=== PATIENT | female | born 1995 | race Caucasian/White ===

== ENCOUNTER 2024-07-26 09:09 | Outpatient (CLI) | payer BC, SELFPAY ==
--- NOTE | 2024-07-26 09:15 | CRLHL7_ITS ---
For Patients: As a result of the Century Cures Act, medical imaging exams and procedure reports are released immediately into your electronic medical record. You may view this report before your referring provider. If you have questions, please contact your health care provider. OBSTETRICAL ULTRASOUND TRANSABDOMINAL ??? FIRST TRIMESTER, 07/26/2024 CLINICAL INDICATION: Dating and viability. IVF. LMP: 05/18/2024 MIGUE by LMP: 02/22/2025 Gestational age: 9 weeks 6 days Previous ultrasound: No TECHNIQUE: Real-time campo-scale imaging of the fetus was performed transvaginal. FINDINGS: CRL: 3.0 cm, 9 weeks 6 days; MIGUE 02/22/2025 heart rate: 171 BPM Gestational sac: 4.6 cm, appears within normal limits Yolk sac: 4.4 mm, appears within normal limits Right ovary: 4.7 x 2.9 x 3.2 cm Left ovary: 4.9 x 3.4 x 3.3 cm IMPRESSION: 1. Single living intrauterine measuring 9 weeks 6 days and sonographic due date of 02/22/2025. 2. Small inferior subchorionic hemorrhage measures 4 x 1 x 16 mm. JOSH MELGAR M.D. Diagnostic Radiologist [email or web address] Transcribed: 10:[address]/Dictated by: Josh Melgar MD @ 07/26/2024 10:20:00 AM (Electronically Signed)
== END 2024-07-26 09:10 | disposition home or self-care (01) ==
LOC: US 09:10
PROVIDERS: Visit Provider Physician Assistant
DX: O09.811 Supervision of pregnancy resulting from assisted reproductive technology, first trimester (principal); O20.9 Hemorrhage in early pregnancy, unspecified; Z3A.09 9 weeks gestation of pregnancy
CPT/HCPCS: 76801; 83021; 86703; 86706; 86803; 86850; 86900; 86901; 87086; 87340; 87491; 87591

== ENCOUNTER 2024-07-26 10:28 | Outpatient (CLI) | payer BC, SELFPAY ==
[2024-07-26 16:00] LABS: Chlamydia DNA Amplified* NOT DETECTED (No Detected); GC DNA Amplified* NOT DETECTED (No Detected)
== END 2024-07-26 10:29 | disposition home or self-care (01) ==
PROVIDERS: Visit Provider Physician Assistant
DX: O09.811 Supervision of pregnancy resulting from assisted reproductive technology, first trimester (principal); Z3A.09 9 weeks gestation of pregnancy
CPT/HCPCS: 83020; 83021; 85660; 86592; 86703; 86704; 86706; 86762; 86787; 86803; 86850; 86900; 86901; 87086; 87340; 87491; 87591

== ENCOUNTER 2024-10-05 11:43 | Outpatient (CLI) | payer BC, SELFPAY | END 2024-10-05 11:44 | disposition home or self-care (01) | LOC: US 11:44 | PROVIDERS: Visit Provider Obstetrics & Gynecology | DX: O09.812 Supervision of pregnancy resulting from assisted reproductive technology, second trimester (principal); Z3A.19 19 weeks gestation of pregnancy | CPT/HCPCS: 76811 ==

== ENCOUNTER 2024-11-09 10:38 | Outpatient (CLI) | payer BC, SELFPAY | END 2024-11-09 10:39 | disposition home or self-care (01) | LOC: US 10:39 | PROVIDERS: Visit Provider Obstetrics & Gynecology | DX: O09.812 Supervision of pregnancy resulting from assisted reproductive technology, second trimester (principal); Z3A.24 24 weeks gestation of pregnancy | CPT/HCPCS: 76816 ==

== ENCOUNTER 2024-12-06 10:20 | Outpatient (CLI) | payer BC, SELFPAY | END 2024-12-06 10:21 | disposition home or self-care (01) | LOC: NFLDREF 12-08 17:27 | PROVIDERS: Visit Provider Obstetrics & Gynecology | DX: Z34.93 Encounter for supervision of normal pregnancy, unspecified, third trimester (principal) | CPT/HCPCS: 86592 ==

== ENCOUNTER 2025-01-04 09:02 | Outpatient (CLI) | payer BC, SELFPAY | END 2025-01-04 09:03 | disposition home or self-care (01) | LOC: US 09:03 | PROVIDERS: Visit Provider Obstetrics & Gynecology | DX: O09.813 Supervision of pregnancy resulting from assisted reproductive technology, third trimester (principal); Z3A.33 33 weeks gestation of pregnancy | CPT/HCPCS: 76816 ==

== ENCOUNTER 2025-01-31 08:59 | Outpatient (CLI) | payer BC, SELFPAY ==
--- NOTE | 2025-01-31 09:15 | CRLHL7_ITS ---
For Patients: As a result of the Cures Act, medical imaging exams and procedure reports are released immediately into your electronic medical record. You may view this report before your referring provider. If you have questions, please contact your health care provider. OBSTETRICAL ULTRASOUND ??? BIOPHYSICAL PROFILE INDICATION: IVF. Biophysical profile. CLINICAL HISTORY: MIGUE by IVF: 02/23/2025 Gestational Age: 36 weeks 5 days COMPARISON: 01/04/2025, 11/09/2024, 10/05/2024. TECHNIQUE: Real-time campo-scale transabdominal imaging of the fetus was performed. FINDINGS: Fetus: Single Cervix: Not visualized positioning: Vertex Amniotic Fluid: 3.8 cm SDP BIOPHYSICAL PROFILE: Gross body movements: 2 tone: 2 Respiratory activity: 2 Amniotic fluid SDP: 2 Total score: 8 Placenta technique: Transabdominal Placenta position: Posterior heart rate: 142 bpm IMPRESSION: Normal biophysical profile score of 8/8. JOSH MELGAR M.D. Diagnostic Radiologist [email or web address] Transcribed: 11:[address]/Dictated by: Josh Melgar MD @ 01/31/2025 10:38:00 AM (Electronically Signed)
== END 2025-01-31 09:00 | disposition home or self-care (01) ==
LOC: US 08:59
PROVIDERS: Visit Provider Obstetrics & Gynecology
DX: O09.813 Supervision of pregnancy resulting from assisted reproductive technology, third trimester (principal); Z3A.36 36 weeks gestation of pregnancy
CPT/HCPCS: 76819

== ENCOUNTER 2025-01-31 10:20 | Outpatient (CLI) | payer BC, SELFPAY | END 2025-01-31 10:21 | disposition home or self-care (01) | LOC: NFLDREF 02-04 23:06 | PROVIDERS: Visit Provider Obstetrics & Gynecology | DX: O09.813 Supervision of pregnancy resulting from assisted reproductive technology, third trimester (principal); Z3A.36 36 weeks gestation of pregnancy | CPT/HCPCS: 87081; 87653 ==

== ENCOUNTER 2025-02-07 09:03 | Outpatient (CLI) | payer BC, SELFPAY ==
--- NOTE | 2025-02-07 09:15 | CRLHL7_ITS ---
For Patients: As a result of the Cures Act, medical imaging exams and procedure reports are released immediately into your electronic medical record. You may view this report before your referring provider. If you have questions, please contact your health care provider. OB ULTRASOUND BIOPHYSICAL PROFILE CLINICAL HISTORY: IVF. TECHNIQUE: Ultrasound OB pelvis transabdominal. Real-time campo-scale imaging of the pelvis was performed.? COMPARISON: 01/31/2025, 01/04/2025, 11/09/2024. FINDINGS: MIGUE by IVF: 02/23/2025. GA: 37 weeks 5 days. Gestation: Single. Cervix: Not visualized. Positioning: Vertex. Amniotic Fluid: 4.2 cm SDP. BIOPHYSICAL PROFILE Gross Body Movements: 2 Tone: 2 Respiratory Activity: 2 Amniotic Fluid SDP: 2 Total Score: 8 Placenta: Technique: TA. Placenta Position: Posterior. Dopplers: Heart Rate: 136 bpm. IMPRESSION: Normal biophysical profile score of 8/8. Josh Tamayo M.D. Diagnostic Radiologist [email or web address] Transcribed: 11:07 am DW/Dictated by: Josh Tamayo MD @ 02/07/2025 10:33:00 AM (Electronically Signed)
== END 2025-02-07 09:04 | disposition home or self-care (01) ==
LOC: US 09:04
PROVIDERS: Visit Provider Obstetrics & Gynecology
DX: O09.813 Supervision of pregnancy resulting from assisted reproductive technology, third trimester (principal); Z3A.37 37 weeks gestation of pregnancy
CPT/HCPCS: 76819

== ENCOUNTER 2025-02-08 12:57 | Outpatient (CLI) | payer BC, SELFPAY ==
[2025-02-08 13:10] VITALS: PULSE 89; O2SAT 100
[2025-02-08 13:15] VITALS: PULSE 90; O2SAT 100
[2025-02-08 13:22] VITALS: BP 117/59; PULSE 82
[2025-02-08 13:40] VITALS: RESP 18; TEMP 36.7
[2025-02-08 13:47] LABS: Amnisure Rom* Negative
--- NOTE | 2025-02-08 14:13 | CRLHL7_ITS ---
For Patients: As a result of the Century Cures Act, medical imaging exams and procedure reports are released immediately into your electronic medical record. You may view this report before your referring provider. If you have questions, please contact your health care provider. INDICATION: CONCERN FOR PROM, CHECK LOUIE. TECHNIQUE: Ultrasound OB pelvis transabdominal. Real-time campo-scale imaging of the fetus was performed without stress testing. COMPARISON: OB ultrasound 02/07/2025. FINDINGS: Sonographic imaging demonstrates a single living intrauterine gestation. Fetus demonstrates a regular cardiac rate of 157 beats per minute. Fetus has a cephalic orientation. Amniotic fluid volume is normal with single deepest pocket of 5.4 cm and LOUIE of 11.6 cm. IMPRESSION: Single viable intrauterine with normal amniotic fluid volume. Dictated by David Rodriguez MD @ 02/08/2025 2:58:33 PM (Electronically Signed)
--- NOTE | 2025-02-08 14:59 | PC.OBNST ---
NST Note NST Note Start: 02/08/25 13:03 Freq: ONCE Status: Active Protocol: Document 02/08/25 14:55 SRV (Rec: 02/08/25 14:59 SRV No Response) NST Note 1 Para (# of births) 0 EDC 02/23/25 Gestational Age In 37 Weeks & 6 Days Weeks & Days Patient Presented Leaking fluid,Other with Complaint(s) of Other Complaints Questionable watery brown/red discharge since yesterday with some abdominal pressure at times Reactive Yes Appropriate for Yes Gestational Age FAUSTINO Erickson RN Date 02/08/25 Reactive Yes Appropriate for Yes Gestational Age FAUSTINO Anderson Date 02/08/25 OB NST charge Yes Complete NST Note Yes via Write Note The provider's electronic signature indicates the NST is reactive/appropriate for gestational age. *Note to provider: If an addendum is required, open the patient's chart and click on the note under the Nurse/Allied Health tab.
== END 2025-02-08 14:55 | disposition home or self-care (01) ==
LOC: OB OUT 12:57 → OB 12:57
PROVIDERS: Visit Provider Obstetrics & Gynecology
DX: O47.1 False labor at or after 37 completed weeks of gestation (principal); Z3A.37 37 weeks gestation of pregnancy
CPT/HCPCS: 59025; 76815; 84112; G0463

== ENCOUNTER 2025-02-14 08:59 | Outpatient (CLI) | payer BC, SELFPAY ==
--- NOTE | 2025-02-14 09:15 | CRLHL7_ITS ---
For Patients: As a result of the Cures Act, medical imaging exams and procedure reports are released immediately into your electronic medical record. You may view this report before your referring provider. If you have questions, please contact your health care provider. OB ULTRASOUND MIGUE by LMP: 02/23/2025. GA: 38 w, 5 d. Single. Comparison: 02/08/2025, 02/07/2025, 01/31/2025, 01/04/2025, 11/09/2024, 10/05/2024. INDICATION: IVF. TECHNIQUE: Real time grayscale imaging of the fetus was performed. Transabdominal. CERVIX: Not visualized. POSITIONING: Vertex. AMNIOTIC FLUID: 2.9 cm. SDP (N: greater than 2 x 1 cm) BIOPHYSICAL PROFILE: 2: Gross body movements 2: tone 2: Respiratory activity 2: Amniotic fluid SDP (N: greater than 2 x 1 cm) 8/8: Total score PLACENTA: Technique: Transabdominal. PLACENTA POSITION: Posterior. DOPPLER: heart rate: 152 bpm. IMPRESSION: Normal biophysical profile score 8/8. Amniotic fluid single deepest pocket 2.9 cm. Josh Tamayo M.D. Diagnostic Radiologist [email or web address] laws/Dictated by: Josh Tamayo MD @ 02/14/2025 9:43:00 AM (Electronically Signed)
== END 2025-02-14 09:00 | disposition home or self-care (01) ==
LOC: US 09:00
PROVIDERS: Visit Provider Obstetrics & Gynecology
DX: O09.813 Supervision of pregnancy resulting from assisted reproductive technology, third trimester (principal); Z3A.38 38 weeks gestation of pregnancy
CPT/HCPCS: 76819

== ENCOUNTER 2025-02-20 20:16 | Outpatient (CLI) | payer BC, SELFPAY ==
[2025-02-20 20:34] VITALS: BP 116/68; PULSE 82; PULSE 90; O2SAT 100
[2025-02-20 22:10] VITALS: TEMP 36.8
--- NOTE | 2025-02-21 01:15 | PC.OBNST ---
NST Note NST Note Start: 02/20/25 20:19 Freq: ONCE Status: Discharge Protocol: Document 02/20/25 21:41 CJM (Rec: 02/20/25 22:15 CJM No Response) NST Note 1 Para (# of births) 0 EDC 02/23/25 Gestational Age In 39 Weeks & 4 Days Weeks & Days Patient Presented Contractions/cramping with Complaint(s) of Reactive Yes Appropriate for Yes Gestational Age RN Hank Hernandez RN Date 02/20/25 Reactive Yes Appropriate for Yes Gestational Age RN Romina Zuñiga RN Date 02/20/25 OB NST charge Yes Complete NST Note Yes via Write Note The provider's electronic signature indicates the NST is reactive/appropriate for gestational age. *Note to provider: If an addendum is required, open the patient's chart and click on the note under the Nurse/Allied Health tab.
== END 2025-02-20 21:56 | disposition home or self-care (01) ==
LOC: OB OUT 20:16 → OB 20:17
PROVIDERS: Visit Provider Obstetrics & Gynecology
DX: O47.1 False labor at or after 37 completed weeks of gestation (principal); Z3A.39 39 weeks gestation of pregnancy
CPT/HCPCS: 59025; G0463

== ENCOUNTER 2025-02-21 08:59 | Outpatient (CLI) | payer BC, SELFPAY ==
--- NOTE | 2025-02-21 09:15 | CRLHL7_ITS ---
For Patients: As a result of the Century Cures Act, medical imaging exams and procedure reports are released immediately into your electronic medical record. You may view this report before your referring provider. If you have questions, please contact your health care provider. OB ULTRASOUND MIGUE by IVF: 02/23/2025. GA: 39 w, 5 d. Single. Comparison: 02/14/2025, 02/08/2025, 02/07/2025. INDICATION: IVF. TECHNIQUE: Real time grayscale imaging of the fetus was performed. Transabdominal. CERVIX: Not visualized. POSITIONING: Vertex. AMNIOTIC FLUID: 4.4 cm. SDP (N: greater than 2 x 1 cm) BIOPHYSICAL PROFILE: 2: Gross body movements 2: tone 2: Respiratory activity 2: Amniotic fluid SDP (N: greater than 2 x 1 cm) 8/8: Total score PLACENTA: Technique: Transabdominal. PLACENTA POSITION: Posterior. DOPPLER: heart rate: 136 bpm. IMPRESSION: Normal biophysical profile score 8/8. Josh Tamayo M.D. Diagnostic Radiologist [email or web address] [email or web address]/[email or web address] laws/Dictated by: Josh Tamayo MD @ 02/21/2025 2:39:00 PM (Electronically Signed)
== END 2025-02-21 09:00 | disposition home or self-care (01) ==
LOC: US 08:59
PROVIDERS: Visit Provider Obstetrics & Gynecology
DX: O09.813 Supervision of pregnancy resulting from assisted reproductive technology, third trimester (principal); Z3A.39 39 weeks gestation of pregnancy
CPT/HCPCS: 76819

== ENCOUNTER 2025-02-24 15:48 | Inpatient (IN) | payer BC, SELFPAY ==
[2025-02-24 16:03] VITALS: BP 122/73; PULSE 83
[2025-02-24 16:07] VITALS: BMI 28.3
--- NOTE | 2025-02-24 17:41 | P.LDBA_ITS ---
Subjective History of Present Illness Date Seen: 02/24/25 Narrative: Patient is being admitted to Labor and Delivery for scheduled IOL. She is a 29 year old at 40.1 weeks gestation. Her full history and physical was dictated by Dr. Razo on 02/07/25. Please see this for details. Active movement. Denies LOF, vaginal bleeding or abnormal vaginal discharge. Irregular contractions with a lot of pelvic pressure. Specific Issues/Plans G1P[] Partner: Eloy Frankie B nonimmune - Undecided on if she wants booster. Definitely only if she decides on receiving booster H&P: Dung 02/07/25 # IVF Completed preimplantation genetics Level 2 ultrasound and MFM consult: referral placed. Scheduled for 10/27 echo: 10/27/24 normal ASA 81mg starting on 08/22 Growth ultrasound at 32 weeks: 11/ w/MFM at [facility] testing starting at 36 weeks: testing form completed # mild bilateral pyelectasis with right ureterectasis on 10/05 recommend a repeat US with [facility] in 4-6 weeks to re-evaluate growth and urinary tract # Deaf electroplater automatic. Partner is also deaf Family appreciates bedside US for FHR checks if possible # anxiety, currently doing well without treatment Imagin10/05/24: Amaral intrauterine at 19w 6d gestational age. Mild b ilateral pyelectasis is noted with mild right proximal ureterectasis. Otherwise, none of the anomalies commonly detected by ultrasound were evident in the detailed anatomic survey described above. Growth parameters and estimated weight were consistent with appropriate for gestational age pattern of growth. The amniotic fluid volume appeared normal. 10/27/2024: echocardiogram: Normal cardiac anatomy. Normal right and left ventricular size and function. No effusion. Vaccinations: COVID: prefers to wait until after delivery for flu/covid Flu: wants after delivery Tdap: 12/15/24 received RSV: 12/29/2024 received 32 week mental health: 12/29/2024 Last pap: [Only high-risk abnormal pap results in problem list] OB - Problem Based A/P Additional Plan (1) Anxiety: Problem details: and POTS by patient report Status: Acute (2) Deaf: Status: Acute (3) Infertility: Status: Acute (4) resulting from in-vitro fertilization: Status: Acute Plan - Patient had a late deceleration to 90s for 1 minute when she was first placed on the monitor. Resolved with repositioning. Decision made for cook cath instead of misoprostol. This was explained to patient and her . - Cook cath place at 1815: 50cc/50cc. Uncomplicated - Pain control: Undecided on epidural - GBS negative - Low dose pitocin to start after 6 hours. NST after cook cath - 130 bpm, moderate variability, multiple accelerations, negative decelerations. Cat I - [place]: Q2-3 minutes OB Exam Physical Exam Vital signs: Pulse BP 83 122/73 02/24/25 16:03 02/24/25 16:03 Narrative: Physical exam: General: No acute distress Psych: Alert and oriented x3, full affect HEENT: Normocephalic, atraumatic Lungs: Unlabored breathing Neuro: No focal deficit. Mentating appropriately Pelvic exam: 1/50/-2, moderately soft, mid Navas score of 5
[2025-02-24 18:31] VITALS: BP 110/71; PULSE 84; TEMP 36.7
[2025-02-24 20:14] LABS: Hematocrit* 39.9 % (33.0-51.0); Hemoglobin* 12.9 gm/dL (12.0-16.0); Immature Granulocytes Abs Auto 0.07 K/uL (0.00-0.30); Immature Granulocytes Pct Auto 0.7 %; Lymphocytes Absolute Auto 1.40 K/uL (0.90-2.90); Mean Corpuscular HGB Conc 32 gm/dL (32-36); Mean Corpuscular Hemoglobin 31 pg (26-34); Mean Corpuscular Volume 96 fL (80-100); RDW Coefficient of Variation % 12.5 % (11.5-15.5); Red Blood Count* 4.17 m/uL (4.00-5.20); White Blood Count* 9.61 K/uL (4.50-11.00)
[2025-02-24 20:20] LABS: Slide Review Reflex No
[2025-02-24 21:25] VITALS: BP 105/56; PULSE 65; TEMP 36.8
[2025-02-25] VITALS (164 sets, daily range): BP systolic 92–229; BP diastolic 50–91; PULSE 67–106; RESP 16–18; TEMP 36.7–37.6; O2SAT 81–100
[2025-02-25] MEDS: LACTATED RINGERS 1000 ML 1,000 ML 125 ML IV ×3 (00:33→18:11)
[2025-02-25] MEDS: OXYTOCIN 30 unit/500 ML in NS 30 UNIT/500 ML BAG IVPB (00:34)
[2025-02-25] MEDS: LIDOCAINE 2% (PF) 5 ML VIAL EPIDURAL (07:47)
[2025-02-25] MEDS: ROPIVACAINE 0.2% 100 ml 100 ML 12 MG EPIDURAL (07:53)
--- NOTE | 2025-02-25 08:33 | PM.OBPNL ---
Subjective Time Seen by Provider: 08:33 Date Seen: 02/25/25 Objective Exam: FHTs CAT 1 Vital Signs: Last Vital Signs Temp 98.5 F 02/25/25 08:32 Pulse 76 02/25/25 08:15 BP 105/64 02/25/25 08:15 Pulse Ox 98 02/25/25 08:21 Pelvic Exam Dilation (cm): 8 Effacement (%): 90 Station: -1 Contractions Monitor mode: External Contraction Frequency: 2-3 Contraction pattern: Regular Contraction intensity: Strong/Firm Pitocin Rate (mU/min): 6 Assessment Assessment: active labor Amniotic Membrane Status: SROM Status: Category l Heart Rate Baseline: 120 Penitentiary Variability: Moderate (6-25) Monitor Accelerations: Present Monitor Decelerations: None
--- NOTE | 2025-02-25 13:11 | PM.ANBPRC ---
[facility] Surgical History History of knee surgery ?Z98.890 - Other specified postprocedural states (ICD-10) Social History Narrative: Occupation: []. Marital status: . Scientology/cultural needs: no. Chemical or radiation exposure: no. Pre- tobacco use: no. Pre- alcohol use: no. Current tobacco use: no. Current alcohol use: no. Recreational drug use: no. Dietary restrictions: no. Blood transfusion acceptable in an emergency: yes. PSYCHOSOCIAL HISTORY: History of depression or currently depressed: no. Current or past physical, emotional, or sexual mistreatment: no. Problems that will make it hard to make it to appointments: no. What is your current living situation?: I presently have a place to live Problems where you live: no known problems In the past 12 months, utilities in danger of being shut off: no In past 12 months, lack of transportation kept you from medical appts, meetings, work, or getting things needed for daily living: no In the past 12 mos, have been you worried that your food would run out before you had money to buy more?: never true In the past 12 mos, the food you bought just didn't last and you didn't have money to buy more?: never true Smoking Status: Never smoker How often does anyone, including family, friends and others, physically hurt you: never How often does anyone, including family, friends and others, insult or talk down to you: never How often does anyone, including family, friends and others, threaten you with harm: never How often does anyone, including family, friends and others, scream or curse at you: never Meds Home Medications and Allergies Home Medications ?Medication ?Instructions ?Recorded ?Confirmed ?Type NYW-mrza-BV-omega 3 fatty no.1 27 1 cap PO DAILY 07/26/24 02/24/25 History mg-1 mg-300 mg capsule magnesium 250 mg tablet 250 mg PO QDAY 07/26/24 02/24/25 History mecobalamin (vitamin B12) 2,500 2,500 mcg PO DAILY 07/26/24 02/24/25 History mcg chewable tablet aspirin 81 mg tablet,delayed 81 mg PO QDAY 09/22/24 02/24/25 History release (Adult Low Dose Aspirin) Allergies Allergy/AdvReac Type Severity Reaction Status Date / Time No Known Drug Allergies Allergy Verified 02/24/25 16:29 Results Labs Labs: Laboratory Results - last 24 hr 02/24/25 19:40 WBC 9.61 RBC 4.17 Hgb 12.9 Hct 39.9 MCV 96 MCH 31 MCHC 32 RDW Coeff of [place] 12.5 Plt Count 282 Neut % (Auto) 76.4 H Lymph % (Auto) 14.6 L [place] % (Auto) 6.9 Eos % (Auto) 1.2 Baso % (Auto) 0.2 Neut # (Auto) 7.30 H Lymph # (Auto) 1.40 [place] # (Auto) 0.70 Eos # (Auto) 0.12 Baso # (Auto) 0.02 Abs Immat Gran (auto) 0.07 Imm/Tot Granulo (auto) 0.7 Syphilis IgG Antibody Non-Reactive Blood Type B Positive Antibody Screen NEGATIVE Vital Signs Vital Signs: Last Vital Signs Temp 98.8 F 02/25/25 11:28 Pulse 73 02/25/25 13:00 BP 102/50 L 02/25/25 13:00 Pulse Ox 97 02/25/25 11:47 Weight: 81.9 kg Height: 170.18 cm Anesthesia Procedures Epidural Insertion Patient Location: OB Start Time: 07:00 Stop Time: 08:00 Start Date: 02/25/25 Stop Date: 02/25/25 Reason for Block: procedure for pain Patient Position: sitting Performed By: Asia Hedrick Preanesthetic Checklist: IV checked, risks and benefits discussed, monitors and equipment checked, pre-op evaluation, timeout performed and anesthesia consent Prep: chlorhexidine gluconate Monitoring: blood pressure monitoring, continuous pulse oximetry and heart rate Approach: midline Vertebral Space: lumbar (1-5) Epidural Technique: DAVID saline Needle Type: Tuohy needle Injection Technique: continuous catheter (continuous catheter) Needle gauge: 17 Needle Length (cm): 10 cm Needle Insertion Depth (cm): 8 Catheter Gauge: 19 Catheter Type: multi-orifice Catheter at skin depth (cm): 15 Test Dose Result: negative and lidocaine 1.5% with epinephrine 1 to 200,000
[2025-02-25] MEDS: ONDANSETRON 2 MG/ML inj 4 MG IV (13:58)
--- NOTE | 2025-02-25 14:59 | PM.OBPNL ---
Subjective Time Seen by Provider: 15:25 Date Seen: 02/25/25 Narrative: pushing for 4 hours, exhausted, no further progress with pushing. +2 station. 1+ CAPUT. Discussed options including attempted vacuum. Risks and benefits of CS including alternative discussed, all questions answered. Wants . Consents signed. Objective Exam: Complete, +2. 1+ caput Vital Signs: Last Vital Signs Temp 99.3 F 02/25/25 14:45 Pulse 75 02/25/25 14:04 Resp 18 02/25/25 14:45 BP 104/54 L 02/25/25 14:04 Pulse Ox 97 02/25/25 11:47 Contractions Monitor mode: External Contraction pattern: Regular Contraction intensity: Strong/Firm Pitocin Rate (mU/min): 6 Assessment Amniotic Membrane Status: SROM Status: Category l Heart Rate Baseline: 120 Monitor Accelerations: Present Monitor Decelerations: None Plan Plan: Section.
[2025-02-25] MEDS: AZITHROMYCIN 500 MG in 0.9 % SODIUM CHLORIDE 250 ml 250 ML 255 MG IVPB (15:10)
--- NOTE | 2025-02-25 17:01 | P.OBPRC_ITS ---
OB Delivery Proc Additional Procedures Tubal Ligation at the time of : No Other: No Procedure Date of procedure: 02/25/25 Pre-op diagnosis: Cephalopelvic disproportion, maternal exhaustion Post-op diagnosis: same (Female, 8/9 apgars) Procedure Done: Global Will [facility] bill your pro fee for this procedure?: Yes Blood Loss Measurement Type: QBL (649) Bakri Used: No IV fluids (mL): 900 Urine Output (mL): 425 Surgeon: Glen Anesthesia Type: Epidural Procedure Name: Primary Section Procedure Description: Prior to procedure Risks and benefits explained. Time out completed. Anesthesia documented. Low transverse incision made, carried through sub q. Fascia incised and seperated form rectus muscles. Peritoneum entered sharply and stretched. Retractor placed. Bladder advanced lower. Uterine incision made transversely, spread cephalad and caudad. Head was elevated out of the pelvis and delivered easily. Placenta delivered manually and intact. Uterus closed with 2 layers of 0 vicryl. Irrigated and bleeding on left edge controlled with figur of 8 of 2-0 vicryl. retractor removed. Peritoneum closed with vicryl. Fascia with delayed absorbable barbed suture stratofix. Sub Q irrigated and skin closed with monocryl and steristrips. Dressing placed. Complications: none Pathology: none sent Surgery Debrief Performed: Yes Condition: stable Disposition: PACU
--- NOTE | 2025-02-25 17:17 | P.ANES_ITS ---
Anesthesia Charges Start Date/Time Anesthesia Start Date: 02/25/25 Anesthesia Start Time: 15:40 Stop Date/Time Anesthesia Stop Date: 02/25/25 Anesthesia Stop Time: 17:09 Coding CPT Codes CPT Codes: ANES/ANALG CS DELIVER ADD-ON - 07229 ([id number]) P2 - PATIENT W/MILD SYST DISEASE, QZ - SUPPLIER QUALITY SVC W/O INSTRUMENT LENS GRINDER APPRENTICE BY
--- NOTE | 2025-02-25 17:17 | W.ANESCHARGE ---
Anesthesia Charges Start Date/Time Anesthesia Start Date: 02/25/25 Anesthesia Start Time: 15:40 Stop Date/Time Anesthesia Stop Date: 02/25/25 Anesthesia Stop Time: 17:09 Coding CPT Codes CPT Codes: ANES/ANALG CS DELIVER ADD-ON - 73149 ([id number]) P2 - PATIENT W/MILD SYST DISEASE, QZ - DRAWBRIDGE TENDER SVC W/O SECURITIES SUPERVISOR BY
--- NOTE | 2025-02-25 17:18 | P.NB_ITS ---
Nerve Block Nerve Block Time Seen by Provider: 16:50 Type of block requested by surgeon for post-operative analgesia: TAP Side: bilateral Time out performed: Yes Verification of patient name: Yes Verification of date of : Yes Name of person performing procedure: Costa Floridalma Continuous monitoring Was continuous monitoring of O2 sat, B/P, radiographer cardiac catheterization, recorded every 15 minutes?: Yes Procedure Checklist: sterile prep, needles and gloves Ultrasound guided. Images saved: Yes Medications given in 5ml increments after negative aspiration: Marcaine %: 0.25 mL: 30 Needle gauge: 20 and Exparel mL: 10 Needle gauge: 20 Patient tolerated procedure well: Yes Block Charges Block Charge (with Pro Fee): TAP Bilateral Use of Ultrasound Machine for Block: Yes- US Guidance/pain block
--- NOTE | 2025-02-25 17:25 | PM.OBPRCCS ---
OB Delivery Proc Additional Procedures Tubal Ligation at the time of : No Other: No Procedure Date of procedure: 02/25/25 Pre-op diagnosis: Cephalopelvic disproportion, maternal exhaustion Post-op diagnosis: same (Female, 8/9 apgars) Procedure Done: Global Will [facility] bill your pro fee for this procedure?: Yes Blood Loss Measurement Type: QBL (649) Bakri Used: No IV fluids (mL): 900 Urine Output (mL): 425 Surgeon: Glen Anesthesia Type: Epidural Procedure Name: Primary Section Procedure Description: Prior to procedure Risks and benefits explained. Time out completed. Anesthesia documented. Low transverse incision made, carried through sub q. Fascia incised and seperated form rectus muscles. Peritoneum entered sharply and stretched. Retractor placed. Bladder advanced lower. Uterine incision made transversely, spread cephalad and caudad. Head was elevated out of the pelvis and delivered easily. Placenta delivered manually and intact. Uterus closed with 2 layers of 0 vicryl. Irrigated and bleeding on left edge controlled with figur of 8 of 2-0 vicryl. retractor removed. Peritoneum closed with vicryl. Fascia with delayed absorbable barbed suture stratofix. Sub Q irrigated and skin closed with monocryl and steristrips. Dressing placed. Complications: none Pathology: none sent Surgery Debrief Performed: Yes Condition: stable Disposition: PACU
[2025-02-25] MEDS: ACETAMINOPHEN 500 MG TABLET 1000 MG PO (19:43)
[2025-02-26 02:37] VITALS: BP 101/65; PULSE 78; RESP 18; TEMP 36.8; O2SAT 98
[2025-02-26] MEDS: ACETAMINOPHEN 500 MG TABLET 1000 MG PO ×4 (02:37→22:10)
[2025-02-26 06:34] VITALS: BP 101/64; PULSE 76; RESP 18; TEMP 36.7; O2SAT 98
[2025-02-26] MEDS: DOCUSATE SODIUM 100 MG CAPSULE PO (08:40)
[2025-02-26 08:48] LABS: Hemoglobin* 9.7 gm/dL (12.0-16.0)
[2025-02-26 09:02] VITALS: BP 100/67; PULSE 80; RESP 16; TEMP 36.6; O2SAT 97
[2025-02-26 13:07] VITALS: BP 100/65; PULSE 80; RESP 16; TEMP 36.7; O2SAT 98
--- NOTE | 2025-02-26 13:14 | PM.OBPNVD1 ---
OB - PN:Subj Subjective Time Seen by Provider: 13:22 Date Seen: 02/26/25 Patient comments OB post-: pain well controlled and tolerating diet [place] status: OB - PN: Obj Exam Physical Exam: Vital signs: Temp Pulse Resp BP Pulse Ox O2 Del Method 97.9 F 80 16 100/67 97 Room Air 02/26/25 09:02 02/26/25 09:02 02/26/25 09:02 02/26/25 09:02 02/26/25 09:02 02/26/25 09:02 Detailed Abdominal Exam: Comments: Soft, normal uterine tenderness, fundus firm, dressing dry. Routine Extremities Exam: Comments: nOn-tender with minimal edema. OB - PN: Obj Data Labs Labs: Laboratory Results - last 24 hr 02/26/25 08:40 Hgb 9.7 L OB - PN: A/P Delivery Assessment and Plan (1) Anxiety: Problem details: and POTS by patient report Status: Acute (2) Deaf: Status: Acute (3) Infertility: Status: Acute (4) resulting from in-vitro fertilization: Status: Acute Plan day: 1 Plan: routine care
[2025-02-26 16:13] VITALS: BP 105/68; PULSE 81; RESP 16; TEMP 36.8; O2SAT 99
[2025-02-27 00:05] VITALS: BP 104/68; PULSE 77; RESP 16; TEMP 36.7; O2SAT 98
[2025-02-27] MEDS: ACETAMINOPHEN 500 MG TABLET 1000 MG PO ×2 (04:45→11:00)
[2025-02-27] MEDS: IBUPROFEN 600 MG TABLET PO ×2 (07:28→15:24)
[2025-02-27] MEDS: DOCUSATE SODIUM 100 MG CAPSULE PO (07:29)
[2025-02-27 07:32] VITALS: BP 109/70; PULSE 85; RESP 20; TEMP 36.8; O2SAT 98
--- NOTE | 2025-02-27 08:35 | PM.OBDSVD1 ---
DS: Providers Provider Time Seen by Provider: 09:20 Date Seen: 02/27/25 Date of admission: 02/24/25 15:48 Primary care physician: Not a Local Provider Admitting Clinician: Aditi Freeman MD Attending Physician on discharge: Ellie Jett CNM Date of Discharge: 02/27/25 DS: Diagnosis Discharge Diagnosis (1) care following delivery: Status: Acute (2) Lactating mother: Status: Acute Exam Narrative: Exam Narrative: Constitutional: no apparent distress Respiratory: no labored breathing, lungs clear to auscultation Cardiovascular: regular heart rate and rhythm Extremities: full sensation, no swelling Abdomen: soft, tender, low transverse incision covered with clean, dry, intact silvadene surgical dressing. Uterus is firm. Mood: stable, appropriate Const: Vital Signs, click to edit/add: Vital Signs - 24 hr 02/26/25 09:02 02/26/25 13:07 02/26/25 16:13 Temperature 97.9 F 98.1 F 98.3 F Pulse Rate [Pulse Oximeter] 80 80 81 Respiratory Rate 16 16 16 Blood Pressure [Le ft Arm] 100/67 100/65 105/68 Pulse Oximetry 97 98 99 Oxygen Delivery Me thod Room Air Room Air Room Air 02/27/25 00:05 02/27/25 07:32 Temperature 98.1 F 98.3 F Pulse Rate [Pulse Oximeter] 77 85 Respiratory Rate 16 20 Blood Pressure [Le ft Arm] 104/68 109/70 Pulse Oximetry 98 98 Oxygen Delivery Me thod Room Air Room Air OB - DS: Summary Hospital Course Hospital Course: Chelsie is a 29?y.o. G 1 P 1 who was admitted to [facility] for elective induction of labor. Labor was complicated by failure to progress in the second stage, pushing for over 4 hours and maternal exhaustion.??She had a section that was uncomplicated. The patient feels well.??The pain is controlled with current medications, tylenol and ibuprofen.?She is breast?feeding?and reports things are improving greatly. She is using the nipple shield and feeding independently every 2 to 3 hours. They are also supplementing with formula as needed. the patient has done well.??Vitals have been stable.??She has?remained?afebrile.??Has a good appetite,?is?tolerating a general diet.??She is voiding without difficulty.??She is passing gas and has not had a bowel movement.??She is ambulating and denies any dizziness.??Has?small?amount of rubra lochia. Aunlavell and her partner used IVF for to conceive and had trouble with control in the past. She is not interested in hormonal control for prevention. electrician wiring present and interpreted visit. Planning condoms. ?? Problems: incision? ?? plan:? Discharge?home with baby.? Follow up in 1-2 weeks for incision and mood check (surgical dressing to be removed) and?6 weeks comprehensive visit. Nurse will assist in making follow up appointments prior to discharge. Prescription for tylenol, Ibuprofen, and Oxycodone tabs sent. Ice and heat pack encouraged. Abdominal binder given and instructed how to use. Recommend stool softener until having regular bowel movements. , may see if needed? Labs WNL or stable with trending? Reviewed signs of pre-eclampsia. Call for signs/symptoms of preeclampsia Trae Michel APRN, CNM, was present for visit and have reviewed and?agree?with documentation by the Certified Nurse Midwifery?Student.? Peripartum Data Infant delivery method: Primary C/S; Labored Laceration description: None Procedures: Procedures Operation Date: 02/25/25 15:30 Actual Procedure Side Surgeon p Section Froy Carroll M.D. complications: none Gender: Female Infant Discharge Plan: Home Status at Discharge Functional status at discharge: independent ambulation Overall status at discharge: patient is progressing back to baseline Time Spent with Patient Time attestation: Total time spent providing and/or coordinating discharge services: Time spent: Greater than 30 minutes Discharge Plan Discharge Disposition: Home, Self-Care Date of Admission: 02/24/25 15:48 Attending Provider on Discharge: Ellie Jett Primary Care Provider: Provider,Not a Local Condition: Stable Anticipated Discharge Date/Time: 02/27/25 10:16 Discharge Medications: New docusate sodium 100 mg Capsule 100 mg PO BID PRNQty: 60 2RF acetaminophen 500 mg Tablet 1,000 mg PO Q6H PRNQty: 60 2RF ibuprofen 600 mg Tablet 600 mg PO Q6H PRNQty: 60 0RF oxycodone 5 mg Tablet 5 - 10 mg PO Q4H PRN (Reason: Pain) Qty: 10 0RF Continued magnesium 250 mg tablet 250 mg PO QDAY [id number] 3 fatty no.1 27-1-300 mg capsule 1 cap PO DAILY mecobalamin (vitamin B12) 2,500 mcg tablet,chewable 2,500 mcg PO DAILY Discontinued aspirin [Adult Low Dose Aspirin] 81 mg tablet,delayed release (DR/EC) 81 mg PO QDAY Discharge Orders: Discharge Order (Routine); Ordered 02/27/25 Ordered By: Ellie Covington [facility] Patient Education: Bupivacaine Liposome (By injection), OB Over the Counter Medication Information, OB /Bottle Feeding, OB /Breast Feeding Additional Instructions: Discharge instructions were reviewed with the patient including signs and symptoms of infection and home going medications Lifting Restrictions: 20 pounds for 6 weeks No not submerge incision under water X 2 weeks? Nothing vaginally for 6 weeks: no tampons or intercourse Do not drive while taking narcotic pain medication(s) Off Work or School for 8 weeks Symptoms to report to doctor: Bleeding that saturates more than one pad per hour Passing clots larger than the size of a golf ball Pain not relieved by prescribed medication Fever above 100.4 degrees Fahrenheit A foul vaginal odor Difficulty in emotions, mood, and functions Thoughts of hurting yourself and/or Painful, reddened area in your breast Any drainage, redness, or tenderness in your IV/epidural site Severe headache that doesn't improve after taking medications Changes in vision, including temporary loss of vision, blurred vision, and/or light sensitivity Upper abdominal pain (usually under ribs on the right side) Decrease in urination or painful, frequent urinating Chest pain Shortness of breath Tenderness or pain with redness and/swelling in the calf(s) of your leg 1-2 week visit: incision check, discuss infant feeding concerns, review control options and screen for - anxiety/depression. 6-week visit for an annual exam. consultation services are available to all mothers and babies for the first year after delivery.? To make an appointment, please call [phone]. Activity Level: No strenuous activity and Light activity Discharge Diet: Regular Follow Up Appointments: [facility] [Other] Forms: Oh My [employer] Info Instructions
--- NOTE | 2025-02-27 13:21 | PM.ANPOST ---
Post Anesthesia Note Post Anesthesia Note Patient seen: Inpatient Respiratory Status: adequate Cardiovascular Status: adequate Mental Status: baseline Pain: adequate Temp: baseline Anesthetic awareness: N/A Complications: none Follow care: none
== END 2025-02-27 17:00 | disposition home or self-care (01) | DRG 540 ==
PROVIDERS: Obstetrics & Gynecology; Admitting Provider Obstetrics & Gynecology; Visit Provider Obstetrics & Gynecology
PROC: 10D00Z1 Extraction of Products of Conception, Low, Open Approach (ICD-10-PCS; CPT 59514; principal; 2025-02-25 15:30)
DX: O99.344 Other mental disorders complicating childbirth (principal); F41.9 Anxiety disorder, unspecified; O33.9 Maternal care for disproportion, unspecified; O75.81 Maternal exhaustion complicating labor and delivery; G89.18 Other acute postprocedural pain; Z3A.40 40 weeks gestation of pregnancy; Z37.0 Single live birth; H91.93 Unspecified hearing loss, bilateral; O99.891 Other specified diseases and conditions complicating pregnancy
CPT/HCPCS: 01967; 01968; 36415; 59200; 64488; 76942; 85018; 85025; 86780; 86850; 86900; 86901; A4314; A9270; C1726; J0456; J0665; J0666; J0690; J1100; J1885; J2270; J2371; J2405; J2590; J2795; J3010; J7050; J7120